=== PATIENT | female | born 1945 | race Caucasian/White ===

== ENCOUNTER 2019-02-21 16:34 | Emergency (ER) | payer BC ==
[~2019-02-21] VITALS: Ht 149.9 cm; Wt 72.6 kg
[2019-02-21 16:34] VITALS: BP_SYST 133
--- NOTE | 2019-02-21 16:34 | NUR ---
Placed in room 01 . Placed on supervisor agency appointments, blood pressure machine and pulse oximeter. To gown for exam. Side rails up. Report given to ANTONIO BOWSER
--- NOTE | 2019-02-21 16:35 | NUR ---
DR MARIN AT BEDSIDE REMOVING HARD C-COLLAR.
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
[2019-02-21] MEDS ORDERED: MORPHINE 4 MG/ML INJ. SYRINGE IVP ONE (16:45)
--- NOTE | 2019-02-21 16:57 | NUR ---
PATIENT GETTING X RAY IN BED.
[2019-02-21 17:04] LABS: BASOPHILS % (AUTO) 0.7 % (0.0-2.0); EOSINOPHILS # (AUTO) 0.1 K/uL (0.0-0.4); EOSINOPHILS % (AUTO) 0.9 % (0.0-4.0); HEMATOCRIT 43.4 % (36-48); HEMOGLOBIN 14.7 g/dL (12.0-16.0); LYMPHOCYTES # (AUTO) 2.4 K/uL (1.0-5.5); LYMPHOCYTES % (AUTO) 35.9 % (20.5-51.5); MEAN CORPUSCULAR HEMOGLOBIN 31 pg (27-31); MEAN CORPUSCULAR HGB CONC 34 % (32-36); MEAN CORPUSCULAR VOLUME 92 fL (79.0-98.0); MONOCYTES # (AUTO) 0.5 K/uL (0.0-1.0); MONOCYTES % (AUTO) 7.7 % (1.7-9.3); NEUTROPHILS # (AUTO) 3.7 K/uL (1.8-7.7); NEUTROPHILS % (AUTO) 54.8 % (40.0-70.0); PLATELET COUNT (AUTO) 204 K/uL (130-430); RED BLOOD CELL COUNT(AUTO) 4.72 MIL/uL (4.2-6.2); RED CELL DISTRIBUTION WIDTH 13.4 % (9.0-15.0); WHITE BLOOD COUNT (AUTO) 6.7 K/uL (4.8-10.8)
[2019-02-21 17:20] LABS: ANION GAP 11 (5-15); CALCIUM 9.1 mg/dL (8.4-11.0); CHLORIDE 102 mmol/L (98-107); CREATININE 0.77 mg/dL (0.55-1.30); GLUCOSE 104 mg/dL (70-99); SODIUM SERUM 139 mmol/L (136-145); UREA NITROGEN, BLOOD 12 mg/dL (8-21)
[2019-02-21 17:25] LABS: ALANINE AMINOTRANSFERASE 22 U/L (12-78); ALBUMIN 3.8 g/dL (3.4-4.8); ASPARTATE AMINOTRANSFERASE 23 U/L (10-37); TOTAL BILIRUBIN 0.3 mg/dL (0.0-1.0)
--- NOTE | 2019-02-21 17:29 | NUR ---
PATIENT LEAVING TO CT VIA GURNEY IN STABLE CONDITION.
[2019-02-21 17:31] LABS: POTASSIUM 2.9 mmol/L (3.5-5.1)
--- NOTE | 2019-02-21 17:43 | NUR ---
PATIENT BACK FROM CT IN STABLE CONDITION.
[2019-02-21] MEDS ORDERED: POTASSIUM CHLORIDE 20 MEQ TAB.PRT.SR PO ONE (18:00)
--- NOTE | 2019-02-21 18:40 | NUR ---
ROAD TEST FOR BED [address] MARIN
[2019-02-21] MEDS ORDERED: KETOROLAC TROMETHAMINE 30 MG VIAL IVP ONE (18:45)
[2019-02-21] MEDS ORDERED: IBUPROFEN 600 MG TABLET PO ONE (18:45)
--- NOTE | 2019-02-21 19:04 | NUR ---
DR MARIN AT BEDSIDE TALKING TO PATIENT AND FAMILY.
--- NOTE | 2019-02-21 19:14 | NUR ---
ENDORSED CARE TO ANTONIO MADSEN.
[2019-02-21 19:36] VITALS: BP_SYST 129
--- NOTE | 2019-02-21 19:36 | NUR ---
Patient given written and verbal discharge instructions and verbalizes understanding. ER MD discussed with patient the results and treatment provided. Patient in stable condition. ID arm band removed. IV catheter removed intact and dressing applied, no active bleeding. Rx of Naproxen given. Patient educated on pain management and to follow up with PMD. Pain Scale 0. Opportunity for questions provided and answered. Medication side effect fact sheet provided.
== END 2019-02-21 19:36 | disposition home or self-care (01) ==
LOC: SED 16:34
DX: S20.219A Contusion of unspecified front wall of thorax, initial encounter (principal); E87.6 Hypokalemia; Z88.5 Allergy status to narcotic agent; V43.62XA Car passenger injured in collision with other type car in traffic accident, initial encounter; Y93.89 Activity, other specified; Y92.89 Other specified places as the place of occurrence of the external cause; Y99.8 Other external cause status
CPT/HCPCS: 36415; 70450; 71110; 80053; 85025; 93005; 96374; 96375; 99284; J1885; J2270